=== PATIENT | female | born 1940 | race Caucasian/White ===

== ENCOUNTER 2016-12-30 01:58 | Emergency (ER) | payer MEDICARE, OTHER ==
[~2016-12-30] VITALS: Ht 162.6 cm; Wt 89.0 kg
[~2016-12-30 01:58] MED LIST: FURO40 PO; KDUR20 PO; LEVO75TA4 PO; LISI-662 PO; NAPR-58 PO; lipitor
[2016-12-30] MEDS ORDERED: TraMADol HCL 50 MG TABLET PO ONE (03:15)
[2016-12-30 05:19] VITALS: BP 171/79
== END 2016-12-30 05:47 | disposition home or self-care (01) ==
LOC: EMS 02:00
DX: M13.852 Other specified arthritis, left hip (principal); R26.2 Difficulty in walking, not elsewhere classified; G89.29 Other chronic pain; E78.00 Pure hypercholesterolemia, unspecified; I11.0 Hypertensive heart disease with heart failure; I50.9 Heart failure, unspecified; Z88.0 Allergy status to penicillin
CPT/HCPCS: 73503; 99284

== ENCOUNTER 2017-01-01 11:05 | Inpatient (IN) | payer MEDICARE ==
[~2017-01-01] VITALS: Ht 162.6 cm; Wt 86.3 kg
[2017-01-01] MEDS ORDERED: IPRATROPIUM BROMIDE 0.5 MG/2.5 ML NEB SOLUTION NEB ONE ×2 (11:15→15:15)
[2017-01-01] MEDS ORDERED: ALBUTEROL SULFATE 5 MG/ML 20 ML NEB SOLN [BULK] NEB ONE ×2 (11:15→15:20)
[2017-01-01] MEDS ORDERED: 0.9% SODIUM CHLORIDE 5 ML NEB SOLUTION NEB ONE ×3 (11:18→15:32)
[2017-01-01 11:58] LABS: BASOPHILS # (AUTO) 0.04 K/uL (0.00-0.20); BASOPHILS % (AUTO) 0.3 % (0.0-2.0); EOSINOPHILS # (AUTO) 0.21 K/uL (0.00-0.70); EOSINOPHILS % (AUTO) 1.54 % (1.0-6.0); HEMATOCRIT 39.4 % (36-46); HEMOGLOBIN 12.6 g/dL (12.0-16.0); LYMPHOCYTES # (AUTO) 4.6 K/uL (1.0-4.8); LYMPHOCYTES % (AUTO) 34.1 % (22.0-44.0); MEAN CORPUSCULAR HEMOGLOBIN 28.7 pg (26.0-34.0); MEAN CORPUSCULAR HGB CONC 32.1 G/dL (31.0-37.0); MEAN CORPUSCULAR VOLUME 90 fL (80-100); MONOCYTES # (AUTO) 1.1 K/uL (0.1-1.0); MONOCYTES % (AUTO) 7.9 % (2.0-9.0); NEUTROPHILS # (AUTO) 7.5 K/uL (1.8-7.7); NEUTROPHILS % (AUTO) 56.2 % (40.0-70.0); PLATELET COUNT (AUTO) 233 K/uL (150-450); RED CELL DISTRIBUTION WIDTH 14.1 % (11.5-14.5); WHITE BLOOD COUNT (AUTO) 13.4 K/uL (4.5-11.0)
[2017-01-01 12:08] LABS: ANION GAP 11 mmol/L (8-16); CARBON DIOXIDE 27 mmol/L (22-29); CHLORIDE 102 mmol/L (98-107); CREATININE 0.94 mg/dL (0.60-1.30); GLOMERULAR FILTR. RATE CALC 58 mL/min (>60); POTASSIUM 3.9 mmol/L (3.5-5.1); SODIUM SERUM 140 mmol/L (136-145); UREA NITROGEN, BLOOD 18 mg/dL (7-18)
[2017-01-01 12:23] LABS: B-TYPE NATRIURETIC PEPTIDE 35 pg/mL (0-100)
[2017-01-01 12:48] LABS: ALANINE AMINOTRANSFERASE 24 U/L (12-78); ALBUMIN 3.8 g/dL (3.4-5.0); ASPARTATE AMINOTRANSFERASE 20 U/L (15-37); BILIRUBIN,TOTAL 0.4 mg/dL (0.1-1.0); CREATINE KINASE MB 1.2 ng/mL (0-5); CREATINE KINASE, TOTAL 85 U/L (26-192); THYROID STIMULATING HORMONE 1.62 uIU/mL (0.36-3.74); TOTAL PROTEIN, SERUM 7.4 g/dL (6.4-8.2)
[2017-01-01] MEDS ORDERED: SODIUM CHLORIDE 0.9% 100 ML ONE (13:00)
[2017-01-01] MEDS ORDERED: IOVERSOL 350 MG/ML 150 ML VIAL ONE (13:00)
[2017-01-01] MEDS ORDERED: MethylPREDNISolone SOD SUCC 125 MG/2 ML VIAL IVP ONE (13:30)
[2017-01-01] MEDS ORDERED: LEVOFLOXACIN 500 MG/D5% WATER 100 ML IV ONE (15:45)
[2017-01-01] MEDS ORDERED: SODIUM CHLORIDE 0.9% 1,000 ML IV ONE (16:43)
[2017-01-01 17:06] LABS: APPEARANCE,URINE CLEAR (CLEAR); GLUCOSE, URINE (UA) NEGATIVE (NEGATIVE); KETONES,URINE NEGATIVE (NEGATIVE); LEUKOCYTE ESTERASE ,URINE SMALL (NEGATIVE); OCCULT BLOOD,URINE NEGATIVE (NEGATIVE); PROTEIN,URINE NEGATIVE (NEGATIVE)
[2017-01-01 17:13] LABS: ADD UA MICROSCOPIC YES
[2017-01-01] MEDS ORDERED: ACETAMINOPHEN 325 MG TABLET PO PRN ×2 (17:15→22:45)
[2017-01-01] MEDS ORDERED: ONDANSETRON HCL 4 MG/2 ML VIAL IVP PRN (17:15)
[2017-01-01] MEDS ORDERED: 0.9% SODIUM CHLORIDE 10 ML SYRINGE IVP PRN (17:15)
[2017-01-01 17:22] LABS: PHOSPHORUS 3.3 mg/dL (2.5-4.9)
[2017-01-01 17:48] LABS: RBC,URINE None Seen /HPF (0-2); SQUAMOUS EPITHELIAL CELL,UR Rare /LPF (None Seen)
[2017-01-01] MEDS ORDERED: IPRATROPIUM BROMIDE 0.5 MG/2.5 ML NEB SOLUTION NEB SCH (19:00)
[2017-01-01] MEDS ORDERED: ALBUTEROL SULFATE 2.5 MG/0.5 ML NEB SOLUTION NEB SCH (19:00)
[2017-01-01 20:20] VITALS: BP 148/68
[2017-01-01] MEDS ORDERED: ATOR10TA84 PO (22:38)
[2017-01-01] MEDS: ALBUTEROL SULFATE 2.5 MG/0.5 ML NEB SOLUTION NEB SCH (22:45)
[2017-01-01] MEDS ORDERED: ZOLPIDEM TARTRATE 5 MG TABLET PO PRN (22:45)
[2017-01-01] MEDS ORDERED: ALBUTEROL SULFATE 2.5 MG/0.5 ML NEB SOLUTION NEB PRN (22:45)
[2017-01-01 23:55] VITALS: BP 137/69
[2017-01-02] MEDS: ATORVASTATIN CALCIUM 10 MG TABLET PO SCH ×2 (00:41→20:39)
[2017-01-02] MEDS: NAPROXEN 500 MG TABLET PO SCH ×3 (00:42→21:00)
[2017-01-02] MEDS: LISINOPRIL 20 MG TABLET PO SCH ×2 (00:42→20:39)
[2017-01-02] MEDS: MethylPREDNISolone SOD SUCC 125 MG/2 ML VIAL IVP SCH ×5 (00:43→23:55)
[2017-01-02] MEDS: HEPARIN SODIUM,PORCINE 5,000 UNITS/ML VIAL SQ SCH ×4 (00:44→23:55)
[2017-01-02] MEDS: DILTIAZEM HCL 60 MG TABLET PO SCH ×5 (00:55→23:55)
[2017-01-02 05:15] VITALS: BP 135/68
[2017-01-02] MEDS: LEVOTHYROXINE SODIUM 75 MCG TABLET PO SCH (06:15)
[2017-01-02 07:48] VITALS: BP 137/70
[2017-01-02 08:01] LABS: ALBUMIN 3.5 g/dL (3.4-5.0); BILIRUBIN,TOTAL 0.4 mg/dL (0.1-1.0); CALCIUM, TOTAL 9.1 mg/dL (8.8-10.5); CREATININE 0.96 mg/dL (0.60-1.30); POTASSIUM 3.9 mmol/L (3.5-5.1); TOTAL PROTEIN, SERUM 7.2 g/dL (6.4-8.2)
[2017-01-02] MEDS: PANTOPRAZOLE SODIUM 40 MG DR TABLET PO SCH (08:10)
[2017-01-02] MEDS: POTASSIUM CHLORIDE 20 MEQ ER TABLET PO SCH (08:10)
[2017-01-02] MEDS: DOCUSATE SODIUM 100 MG CAPSULE PO SCH ×2 (08:10→20:39)
[2017-01-02] MEDS: FUROSEMIDE 40 MG TABLET PO SCH (08:10)
[2017-01-02] MEDS: IPRATROPIUM BROMIDE 0.5 MG/2.5 ML NEB SOLUTION NEB SCH ×4 (08:54→20:56)
[2017-01-02] MEDS: ALBUTEROL SULFATE 2.5 MG/0.5 ML NEB SOLUTION NEB SCH ×2 (08:55→13:00)
[2017-01-02] MEDS ORDERED: OxyCODONE HCL/ACETAMINOPHEN 5-325 MG TABLET PO PRN (10:45)
[2017-01-02 11:14] VITALS: BP 130/79
[2017-01-02] MEDS ORDERED: LEVOFLOXACIN 500 MG/D5% WATER 100 ML IV SCH (11:30)
[2017-01-02] MEDS ORDERED: SODIUM CHLORIDE 0.9% 250 ML IV ONE (14:52)
[2017-01-02] MEDS: LEVOFLOXACIN 500 MG/D5% WATER 100 ML IV SCH (15:00)
[2017-01-02 15:32] VITALS: BP 136/77
[2017-01-02] MEDS: OxyCODONE HCL/ACETAMINOPHEN 5-325 MG TABLET PO PRN ×2 (16:10→23:49)
[2017-01-02 19:51] VITALS: BP 133/75
[2017-01-02] MEDS: BUDESONIDE 0.5 MG/2 ML NEB SOLUTION NEB SCH (20:56)
[2017-01-02] MEDS: LEVALBUTEROL HCL 0.63 MG/3 ML NEB SOLUTION NEB SCH (20:56)
[2017-01-02 23:45] VITALS: BP 147/86
[2017-01-03 04:44] VITALS: BP 128/73
[2017-01-03] MEDS: LEVOTHYROXINE SODIUM 75 MCG TABLET PO SCH (05:56)
[2017-01-03] MEDS: MethylPREDNISolone SOD SUCC 125 MG/2 ML VIAL IVP SCH ×3 (05:56→18:09)
[2017-01-03] MEDS: DILTIAZEM HCL 60 MG TABLET PO SCH (05:56)
[2017-01-03 06:53] LABS: EOSINOPHILS % (AUTO) 0 % (1.0-6.0); HEMATOCRIT 38.7 % (36-46); HEMOGLOBIN 12.3 g/dL (12.0-16.0); LYMPHOCYTES # (AUTO) 1.8 K/uL (1.0-4.8); LYMPHOCYTES % (AUTO) 6.1 % (22.0-44.0); MEAN CORPUSCULAR HEMOGLOBIN 28.2 pg (26.0-34.0); MEAN CORPUSCULAR HGB CONC 31.9 G/dL (31.0-37.0); MEAN CORPUSCULAR VOLUME 89 fL (80-100); MONOCYTES # (AUTO) 0.6 K/uL (0.1-1.0); MONOCYTES % (AUTO) 1.9 % (2.0-9.0); NEUTROPHILS # (AUTO) 26.8 K/uL (1.8-7.7); PLATELET COUNT (AUTO) 255 K/uL (150-450); RED BLOOD CELL COUNT(AUTO) 4.37 MIL/uL (4.00-5.20); WHITE BLOOD COUNT (AUTO) 29.1 K/uL (4.5-11.0)
[2017-01-03 07:03] LABS: RBC MORPHOLOGY COMMENT NORMAL RBC MORPH
[2017-01-03 07:38] VITALS: BP 119/58
[2017-01-03 07:40] LABS: CALCIUM, TOTAL 9.5 mg/dL (8.8-10.5); CHOL/HDL RATIO 3.7 (3.9-5.7); CREATINE KINASE MB 16.5 ng/mL (0-5); CREATININE 1.15 mg/dL (0.60-1.30); MAGNESIUM 2.2 mg/dL (1.80-2.40); POTASSIUM 4.9 mmol/L (3.5-5.1); THYROID STIMULATING HORMONE 0.36 uIU/mL (0.36-3.74)
[2017-01-03 07:41] LABS: HEMOGLOBIN A1C 6.3 % (4.5-6.2)
[2017-01-03] MEDS: IPRATROPIUM BROMIDE 0.5 MG/2.5 ML NEB SOLUTION NEB SCH ×4 (08:23→21:21)
[2017-01-03] MEDS: LEVALBUTEROL HCL 0.63 MG/3 ML NEB SOLUTION NEB SCH ×4 (08:23→21:21)
[2017-01-03 08:27] LABS: VITAMIN B12 LEVEL 889 pg/mL (211-911)
[2017-01-03] MEDS: BUDESONIDE 0.5 MG/2 ML NEB SOLUTION NEB SCH ×3 (09:00→21:21)
[2017-01-03] MEDS: HEPARIN SODIUM,PORCINE 5,000 UNITS/ML VIAL SQ SCH ×2 (09:02→16:38)
[2017-01-03] MEDS: PANTOPRAZOLE SODIUM 40 MG DR TABLET PO SCH (09:02)
[2017-01-03] MEDS: FUROSEMIDE 40 MG TABLET PO SCH (09:03)
[2017-01-03] MEDS: DOCUSATE SODIUM 100 MG CAPSULE PO SCH ×2 (09:03→21:09)
[2017-01-03] MEDS: NAPROXEN 500 MG TABLET PO SCH ×2 (09:03→21:09)
[2017-01-03] MEDS: POTASSIUM CHLORIDE 20 MEQ ER TABLET PO SCH (09:03)
[2017-01-03 11:15] VITALS: BP 125/65
[2017-01-03 15:35] VITALS: BP 123/66
[2017-01-03] MEDS: LEVOFLOXACIN 500 MG/D5% WATER 100 ML IV SCH (16:38)
[2017-01-03] MEDS: OxyCODONE HCL/ACETAMINOPHEN 5-325 MG TABLET PO PRN (18:09)
[2017-01-03 19:37] VITALS: BP_SYST 141; BP_SYST 146; BP_DIAS 71; BP_DIAS 83
[2017-01-03] MEDS: LISINOPRIL 20 MG TABLET PO SCH (21:09)
[2017-01-03] MEDS: ATORVASTATIN CALCIUM 10 MG TABLET PO SCH (21:09)
[2017-01-04 00:01] VITALS: BP 119/52
[2017-01-04] MEDS: MethylPREDNISolone SOD SUCC 125 MG/2 ML VIAL IVP SCH ×4 (00:41→17:23)
[2017-01-04] MEDS: HEPARIN SODIUM,PORCINE 5,000 UNITS/ML VIAL SQ SCH ×3 (00:41→17:23)
[2017-01-04 04:52] VITALS: BP 141/83
[2017-01-04] MEDS: OxyCODONE HCL/ACETAMINOPHEN 5-325 MG TABLET PO PRN (05:19)
[2017-01-04] MEDS: LEVOTHYROXINE SODIUM 75 MCG TABLET PO SCH (06:09)
[2017-01-04 07:32] VITALS: BP 135/69
[2017-01-04 08:00] LABS: EOSINOPHILS % (AUTO) 0 % (1.0-6.0); HEMOGLOBIN 11.9 g/dL (12.0-16.0); LYMPHOCYTES # (AUTO) 1.3 K/uL (1.0-4.8); LYMPHOCYTES % (AUTO) 5.3 % (22.0-44.0); MEAN CORPUSCULAR HEMOGLOBIN 28.7 pg (26.0-34.0); MEAN CORPUSCULAR HGB CONC 33.1 G/dL (31.0-37.0); MEAN CORPUSCULAR VOLUME 87 fL (80-100); MONOCYTES # (AUTO) 0.8 K/uL (0.1-1.0); MONOCYTES % (AUTO) 3.3 % (2.0-9.0); NEUTROPHILS # (AUTO) 21.8 K/uL (1.8-7.7); PLATELET COUNT (AUTO) 236 K/uL (150-450); RED BLOOD CELL COUNT(AUTO) 4.15 MIL/uL (4.00-5.20); RED CELL DISTRIBUTION WIDTH 14.4 % (11.5-14.5); WHITE BLOOD COUNT (AUTO) 23.8 K/uL (4.5-11.0)
[2017-01-04 08:01] LABS: NEUTROPHILS % (AUTO) 91.4 % (40.0-70.0)
[2017-01-04 08:17] LABS: CALCIUM, TOTAL 8.8 mg/dL (8.8-10.5); CREATININE 1.22 mg/dL (0.60-1.30); POTASSIUM 4.5 mmol/L (3.5-5.1)
[2017-01-04] MEDS: LEVALBUTEROL HCL 0.63 MG/3 ML NEB SOLUTION NEB SCH ×4 (08:27→21:32)
[2017-01-04] MEDS: BUDESONIDE 0.5 MG/2 ML NEB SOLUTION NEB SCH ×2 (08:27→21:32)
[2017-01-04] MEDS: IPRATROPIUM BROMIDE 0.5 MG/2.5 ML NEB SOLUTION NEB SCH ×4 (08:27→21:32)
[2017-01-04] MEDS: NAPROXEN 500 MG TABLET PO SCH ×2 (08:51→20:19)
[2017-01-04] MEDS: FUROSEMIDE 40 MG TABLET PO SCH (08:51)
[2017-01-04] MEDS: PANTOPRAZOLE SODIUM 40 MG DR TABLET PO SCH (08:51)
[2017-01-04] MEDS: DOCUSATE SODIUM 100 MG CAPSULE PO SCH ×2 (08:52→20:19)
[2017-01-04] MEDS: POTASSIUM CHLORIDE 20 MEQ ER TABLET PO SCH (08:52)
[2017-01-04 11:51] VITALS: BP 125/59
[2017-01-04 16:01] VITALS: BP 125/65
[2017-01-04] MEDS: LEVOFLOXACIN 500 MG/D5% WATER 100 ML IV SCH (17:22)
[2017-01-04] MEDS: LISINOPRIL 20 MG TABLET PO SCH (20:19)
[2017-01-04] MEDS: ATORVASTATIN CALCIUM 10 MG TABLET PO SCH (20:19)
[2017-01-04 20:46] VITALS: BP 122/74
[2017-01-05] VITALS (7 sets, daily range): BP systolic 132–144; BP diastolic 66–77
[2017-01-05] MEDS: HEPARIN SODIUM,PORCINE 5,000 UNITS/ML VIAL SQ SCH ×3 (01:10→16:42)
[2017-01-05] MEDS: MethylPREDNISolone SOD SUCC 125 MG/2 ML VIAL IVP SCH ×4 (01:10→17:53)
[2017-01-05] MEDS: LEVOTHYROXINE SODIUM 75 MCG TABLET PO SCH (06:20)
[2017-01-05 07:31] LABS: EOSINOPHILS % (AUTO) 0 % (1.0-6.0); HEMATOCRIT 38.9 % (36-46); HEMOGLOBIN 12.5 g/dL (12.0-16.0); LYMPHOCYTES # (AUTO) 1.3 K/uL (1.0-4.8); LYMPHOCYTES % (AUTO) 7.2 % (22.0-44.0); MEAN CORPUSCULAR HEMOGLOBIN 28.3 pg (26.0-34.0); MEAN CORPUSCULAR HGB CONC 32.1 G/dL (31.0-37.0); MEAN CORPUSCULAR VOLUME 88 fL (80-100); MONOCYTES # (AUTO) 0.4 K/uL (0.1-1.0); MONOCYTES % (AUTO) 2.3 % (2.0-9.0); NEUTROPHILS # (AUTO) 16.8 K/uL (1.8-7.7); PLATELET COUNT (AUTO) 234 K/uL (150-450); RED BLOOD CELL COUNT(AUTO) 4.41 MIL/uL (4.00-5.20); RED CELL DISTRIBUTION WIDTH 14.2 % (11.5-14.5); WHITE BLOOD COUNT (AUTO) 18.6 K/uL (4.5-11.0)
[2017-01-05 07:33] LABS: NEUTROPHILS % (AUTO) 90.5 % (40.0-70.0)
[2017-01-05 07:40] LABS: CALCIUM, TOTAL 9.2 mg/dL (8.8-10.5); CREATININE 1.17 mg/dL (0.60-1.30); POTASSIUM 4.8 mmol/L (3.5-5.1)
[2017-01-05] MEDS: IPRATROPIUM BROMIDE 0.5 MG/2.5 ML NEB SOLUTION NEB SCH ×4 (08:59→20:29)
[2017-01-05] MEDS: LEVALBUTEROL HCL 0.63 MG/3 ML NEB SOLUTION NEB SCH ×4 (09:00→20:29)
[2017-01-05] MEDS: BUDESONIDE 0.5 MG/2 ML NEB SOLUTION NEB SCH ×2 (09:00→20:29)
[2017-01-05] MEDS: PANTOPRAZOLE SODIUM 40 MG DR TABLET PO SCH (09:41)
[2017-01-05] MEDS: POTASSIUM CHLORIDE 20 MEQ ER TABLET PO SCH (09:41)
[2017-01-05] MEDS: DOCUSATE SODIUM 100 MG CAPSULE PO SCH ×2 (09:41→20:16)
[2017-01-05] MEDS: FUROSEMIDE 40 MG TABLET PO SCH (09:41)
[2017-01-05] MEDS: NAPROXEN 500 MG TABLET PO SCH ×2 (09:42→20:17)
[2017-01-05] MEDS: LEVOFLOXACIN 500 MG/D5% WATER 100 ML IV SCH (16:42)
[2017-01-05] MEDS: ATORVASTATIN CALCIUM 10 MG TABLET PO SCH (20:16)
[2017-01-05] MEDS: LISINOPRIL 20 MG TABLET PO SCH (20:17)
[2017-01-05] MEDS ORDERED: MAGNESIUM HYDROXIDE SUSPENSION 30 ML UDCUP PO PRN (21:15)
[2017-01-05] MEDS: OxyCODONE HCL/ACETAMINOPHEN 5-325 MG TABLET PO PRN (22:00)
[2017-01-06] MEDS: MethylPREDNISolone SOD SUCC 125 MG/2 ML VIAL IVP SCH ×3 (00:12→11:36)
[2017-01-06] MEDS: HEPARIN SODIUM,PORCINE 5,000 UNITS/ML VIAL SQ SCH ×4 (00:12→23:44)
[2017-01-06 04:44] VITALS: BP 117/73
[2017-01-06] MEDS: LEVOTHYROXINE SODIUM 75 MCG TABLET PO SCH (06:01)
[2017-01-06 07:18] VITALS: BP 125/73
[2017-01-06 07:32] LABS: EOSINOPHILS % (AUTO) 0 % (1.0-6.0); HEMATOCRIT 39.4 % (36-46); HEMOGLOBIN 12.5 g/dL (12.0-16.0); LYMPHOCYTES # (AUTO) 1.5 K/uL (1.0-4.8); LYMPHOCYTES % (AUTO) 7.2 % (22.0-44.0); MEAN CORPUSCULAR HEMOGLOBIN 27.5 pg (26.0-34.0); MEAN CORPUSCULAR HGB CONC 31.6 G/dL (31.0-37.0); MEAN CORPUSCULAR VOLUME 87 fL (80-100); MONOCYTES # (AUTO) 0.3 K/uL (0.1-1.0); MONOCYTES % (AUTO) 1.5 % (2.0-9.0); NEUTROPHILS # (AUTO) 18.6 K/uL (1.8-7.7); PLATELET COUNT (AUTO) 221 K/uL (150-450); RED BLOOD CELL COUNT(AUTO) 4.52 MIL/uL (4.00-5.20); RED CELL DISTRIBUTION WIDTH 14.5 % (11.5-14.5); WHITE BLOOD COUNT (AUTO) 20.3 K/uL (4.5-11.0)
[2017-01-06 07:34] LABS: CALCIUM, TOTAL 8.5 mg/dL (8.8-10.5); CREATININE 1.15 mg/dL (0.60-1.30)
[2017-01-06 07:36] LABS: NEUTROPHILS % (AUTO) 91.3 % (40.0-70.0)
[2017-01-06 07:37] LABS: RBC MORPHOLOGY COMMENT NORMAL RBC MORPH
[2017-01-06] MEDS: DOCUSATE SODIUM 100 MG CAPSULE PO SCH ×2 (09:19→20:45)
[2017-01-06] MEDS: NAPROXEN 500 MG TABLET PO SCH ×2 (09:19→20:45)
[2017-01-06] MEDS: FUROSEMIDE 40 MG TABLET PO SCH (09:19)
[2017-01-06] MEDS: POTASSIUM CHLORIDE 20 MEQ ER TABLET PO SCH (09:19)
[2017-01-06] MEDS: PANTOPRAZOLE SODIUM 40 MG DR TABLET PO SCH (09:20)
[2017-01-06] MEDS: LEVALBUTEROL HCL 0.63 MG/3 ML NEB SOLUTION NEB SCH ×4 (09:41→20:42)
[2017-01-06] MEDS: IPRATROPIUM BROMIDE 0.5 MG/2.5 ML NEB SOLUTION NEB SCH ×4 (09:41→20:42)
[2017-01-06 11:04] VITALS: BP 118/75
[2017-01-06 16:06] VITALS: BP 123/65
[2017-01-06] MEDS ORDERED: SODIUM CHLORIDE 0.9% 500 ML IV ONE (16:37)
[2017-01-06] MEDS: LEVOFLOXACIN 500 MG/D5% WATER 100 ML IV SCH (16:46)
[2017-01-06] MEDS ORDERED: NITROGLYCERIN 2% (1 GM=INCH) PACKET TP PRN (18:00)
[2017-01-06] MEDS: MethylPREDNISolone SOD SUCC 40 MG/ML VIAL IVP SCH ×2 (18:19→23:44)
[2017-01-06] MEDS ORDERED: 0.9% SODIUM CHLORIDE 10 ML SYRINGE IVP PRN (19:30)
[2017-01-06 19:38] VITALS: BP 147/70
[2017-01-06] MEDS: ATORVASTATIN CALCIUM 10 MG TABLET PO SCH (20:45)
[2017-01-06] MEDS: LISINOPRIL 20 MG TABLET PO SCH (20:45)
[2017-01-06] MEDS: OxyCODONE HCL/ACETAMINOPHEN 5-325 MG TABLET PO PRN (20:46)
[2017-01-06 23:11] VITALS: BP 120/65
[2017-01-07 04:25] VITALS: BP 122/61
[2017-01-07] MEDS: MethylPREDNISolone SOD SUCC 40 MG/ML VIAL IVP SCH ×3 (06:12→16:09)
[2017-01-07] MEDS: LEVOTHYROXINE SODIUM 75 MCG TABLET PO SCH (06:12)
[2017-01-07 07:24] VITALS: BP 132/75
[2017-01-07] MEDS: HEPARIN SODIUM,PORCINE 5,000 UNITS/ML VIAL SQ SCH ×2 (08:12→16:00)
[2017-01-07] MEDS: FUROSEMIDE 40 MG TABLET PO SCH (08:12)
[2017-01-07] MEDS: DOCUSATE SODIUM 100 MG CAPSULE PO SCH ×2 (08:12→21:06)
[2017-01-07] MEDS: PANTOPRAZOLE SODIUM 40 MG DR TABLET PO SCH (08:12)
[2017-01-07] MEDS: POTASSIUM CHLORIDE 20 MEQ ER TABLET PO SCH (08:12)
[2017-01-07] MEDS: NAPROXEN 500 MG TABLET PO SCH ×2 (08:13→21:06)
[2017-01-07] MEDS: IPRATROPIUM BROMIDE 0.5 MG/2.5 ML NEB SOLUTION NEB SCH ×4 (09:02→21:12)
[2017-01-07] MEDS: LEVALBUTEROL HCL 0.63 MG/3 ML NEB SOLUTION NEB SCH ×4 (09:02→21:12)
[2017-01-07 12:06] VITALS: BP 137/74
[2017-01-07] MEDS: BENZONATATE 100 MG CAPSULE PO SCH ×2 (12:20→16:09)
[2017-01-07] MEDS: LEVOFLOXACIN 500 MG/D5% WATER 100 ML IV SCH (16:09)
[2017-01-07 16:11] VITALS: BP 114/60
[2017-01-07 19:17] VITALS: BP 142/76
[2017-01-07] MEDS: LISINOPRIL 20 MG TABLET PO SCH (21:06)
[2017-01-07] MEDS: ATORVASTATIN CALCIUM 10 MG TABLET PO SCH (21:06)
[2017-01-07] MEDS: OxyCODONE HCL/ACETAMINOPHEN 5-325 MG TABLET PO PRN (21:06)
[2017-01-08 00:22] VITALS: BP 126/62
[2017-01-08] MEDS: BENZONATATE 100 MG CAPSULE PO SCH ×2 (00:50→07:36)
[2017-01-08] MEDS: HEPARIN SODIUM,PORCINE 5,000 UNITS/ML VIAL SQ SCH ×2 (00:50→07:36)
[2017-01-08] MEDS: MethylPREDNISolone SOD SUCC 40 MG/ML VIAL IVP SCH ×2 (00:51→05:43)
[2017-01-08 04:58] VITALS: BP 120/59
[2017-01-08] MEDS: LEVOTHYROXINE SODIUM 75 MCG TABLET PO SCH (05:43)
[2017-01-08 07:17] VITALS: BP 104/63
[2017-01-08] MEDS: FUROSEMIDE 40 MG TABLET PO SCH (07:36)
[2017-01-08] MEDS: DOCUSATE SODIUM 100 MG CAPSULE PO SCH (07:36)
[2017-01-08] MEDS: NAPROXEN 500 MG TABLET PO SCH (07:36)
[2017-01-08] MEDS: POTASSIUM CHLORIDE 20 MEQ ER TABLET PO SCH (07:36)
[2017-01-08] MEDS: PANTOPRAZOLE SODIUM 40 MG DR TABLET PO SCH (07:36)
[2017-01-08] MEDS: LEVALBUTEROL HCL 0.63 MG/3 ML NEB SOLUTION NEB SCH ×2 (08:19→12:51)
[2017-01-08] MEDS: IPRATROPIUM BROMIDE 0.5 MG/2.5 ML NEB SOLUTION NEB SCH ×2 (08:19→12:52)
[2017-01-08] MEDS ORDERED: PredniSONE 20 MG TABLET PO SCH (09:00)
[2017-01-08 11:31] VITALS: BP 128/57
[2017-01-08] MEDS: OxyCODONE HCL/ACETAMINOPHEN 5-325 MG TABLET PO PRN ×2 (11:46→15:53)
[2017-01-08] MEDS ORDERED: LEVO500 PO (15:08)
[2017-01-08 15:41] VITALS: BP 118/57
== END 2017-01-08 16:00 | disposition home health service (06) | DRG 202 ==
LOC: EMS 11:07 → 5S 18:20
PROVIDERS: ADMIT Internal Medicine; ATTEND Internal Medicine Geriatric Medicine
DX: J45.901 Unspecified asthma with (acute) exacerbation (principal); J18.9 Pneumonia, unspecified organism; N39.0 Urinary tract infection, site not specified; I47.1 Supraventricular tachycardia; I50.9 Heart failure, unspecified; E66.9 Obesity, unspecified; E03.9 Hypothyroidism, unspecified; I11.0 Hypertensive heart disease with heart failure; M19.90 Unspecified osteoarthritis, unspecified site; I70.0 Atherosclerosis of aorta; M71.20 Synovial cyst of popliteal space [Baker], unspecified knee; E78.5 Hyperlipidemia, unspecified; J20.9 Acute bronchitis, unspecified; T38.0X5A Adverse effect of glucocorticoids and synthetic analogues, initial encounter; E09.65 Drug or chemical induced diabetes mellitus with hyperglycemia; J98.6 Disorders of diaphragm; Y92.238 Other place in hospital as the place of occurrence of the external cause; Z87.01 Personal history of pneumonia (recurrent); Z88.5 Allergy status to narcotic agent; Z88.0 Allergy status to penicillin; Z93.3 Colostomy status; Z90.710 Acquired absence of both cervix and uterus; Z88.2 Allergy status to sulfonamides; Z88.8 Allergy status to other drugs, medicaments and biological substances; Z79.1 Long term (current) use of non-steroidal anti-inflammatories (NSAID); Z79.899 Other long term (current) drug therapy; Z90.49 Acquired absence of other specified parts of digestive tract; Z86.018 Personal history of other benign neoplasm; Y93.89 Activity, other specified; Y99.8 Other external cause status; Z53.29 Procedure and treatment not carried out because of patient's decision for other reasons
CPT/HCPCS: 71275; 76000; 82306; 82607; 82746; 83036; 83735; 84100; 84439; 84443; 85379; 87040; 93005; 93306; 93971; 94640; 94644; 96365; 96366; 96375; 97116; 97162; 97530; 99291; J1644; J1956; J2920; J2930; J7030; J7040; J7050

== ENCOUNTER → 2017-01-16 | Outpatient (CLI) | payer OTHER ==
[~2017-01-16] VITALS: Ht 157.5 cm; Wt 86.0 kg
[~2017-01-16] MED LIST changes: +ATOR10TA84 PO; +LEVO500 PO; -lipitor
[2017-01-16 12:46] VITALS: BP 115/63
== END | disposition home or self-care (01) ==
LOC: SRCNTR 12:39
PROVIDERS: ATTEND Internal Medicine Critical Care Medicine
DX: I11.0 Hypertensive heart disease with heart failure (principal); I50.9 Heart failure, unspecified; J45.901 Unspecified asthma with (acute) exacerbation; M19.90 Unspecified osteoarthritis, unspecified site; Z85.43 Personal history of malignant neoplasm of ovary
CPT/HCPCS: G0463

== ENCOUNTER → 2017-01-27 | Outpatient (CLI) | payer OTHER ==
[~2017-01-27] MED LIST changes: -LEVO500 PO
== END | disposition home or self-care (01) ==
LOC: RESP 10:04
PROVIDERS: ATTEND Internal Medicine Critical Care Medicine
DX: J45.909 Unspecified asthma, uncomplicated (principal)
CPT/HCPCS: 94010; 94726; 94727; 94729

== ENCOUNTER 2019-08-31 12:03 | Emergency (ER) | payer OTHER ==
[~2019-08-31] VITALS: Ht 162.6 cm; Wt 86.4 kg
[~2019-08-31 12:03] MED LIST changes: +NAPR-1025 PO; -NAPR-58 PO
[2019-08-31] MEDS ORDERED: DICL4100G TP (12:45)
[2019-08-31] MEDS ORDERED: SODIUM CHLORIDE 0.9% 1,000 ML IV ONE (15:45)
[2019-08-31 18:30] LABS: ANION GAP 8 mmol/L (8-16); BASOPHILS % (AUTO) 0.3 % (0.0-2.0); CALCIUM, TOTAL 9.8 mg/dL (8.8-10.5); CARBON DIOXIDE 30 mmol/L (22-29); CHLORIDE 103 mmol/L (98-107); CREATININE 0.86 mg/dL (0.60-1.30); EOSINOPHILS % (AUTO) 1.7 % (1.0-6.0); GLUCOSE,RANDOM 105 mg/dL (70-110); HEMATOCRIT 39.8 % (36-46); LYMPHOCYTES # (AUTO) 1.8 K/uL (1.0-4.8); LYMPHOCYTES % (AUTO) 20.4 % (22.0-44.0); MEAN CORPUSCULAR HEMOGLOBIN 28.5 pg (26.0-34.0); MEAN CORPUSCULAR HGB CONC 32.7 G/dL (31.0-37.0); MEAN CORPUSCULAR VOLUME 87 fL (80-100); MONOCYTES # (AUTO) 0.6 K/uL (0.1-1.0); NEUTROPHILS # (AUTO) 6.2 K/uL (1.8-7.7); NEUTROPHILS % (AUTO) 70.6 % (40.0-70.0); PLATELET COUNT (AUTO) 243 K/uL (150-450); POTASSIUM 4.3 mmol/L (3.5-5.1); RED BLOOD CELL COUNT(AUTO) 4.58 MIL/uL (4.00-5.20); RED CELL DISTRIBUTION WIDTH 14.3 % (11.5-14.5); SODIUM SERUM 141 mmol/L (136-145); UREA NITROGEN, BLOOD 16 mg/dL (7-18)
[2019-08-31 18:32] LABS: GLOMERULAR FILTR. RATE CALC > 60 mL/min (>60)
[2019-08-31 18:37] LABS: ALANINE AMINOTRANSFERASE 19 U/L (12-78); ALBUMIN 3.8 g/dL (3.4-5.0); ALKALINE PHOSPHATASE 122 U/L (46-116); ASPARTATE AMINOTRANSFERASE 17 U/L (15-37); BILIRUBIN,TOTAL 0.5 mg/dL (0.1-1.0); CREATINE KINASE, TOTAL ONLY 37 U/L (26-192); TOTAL PROTEIN, SERUM 7.3 g/dL (6.4-8.2)
[2019-08-31 18:38] LABS: LACTIC ACID 1.1 mmol/L (0.4-2.0)
[2019-08-31 18:47] LABS: PROTHROMBIN TIME 9.7 SEC (9.4-11.6)
[2019-08-31 19:05] LABS: APPEARANCE,URINE CLEAR (CLEAR); BILIRUBIN,URINE NEGATIVE (NEGATIVE); GLUCOSE, URINE (UA) NEGATIVE (NEGATIVE); KETONES,URINE NEGATIVE (NEGATIVE); LEUKOCYTE ESTERASE ,URINE NEGATIVE (NEGATIVE); NITRATE,URINE NEGATIVE (NEGATIVE); OCCULT BLOOD,URINE NEGATIVE (NEGATIVE); PH,URINE 6.5 (5.0-8.0); PROTEIN,URINE NEGATIVE (NEGATIVE); UROBILINOGEN,URINE 0.2 mg/dL (<=1.0)
[2019-08-31 19:41] LABS: THYROID STIMULATING HORMONE 1.37 uIU/mL (0.36-3.74)
[2019-08-31] MEDS ORDERED: ACETAMINOPHEN 500 MG TABLET PO ONE (19:45)
[2019-08-31 19:59] VITALS: BP 132/86
== END 2019-08-31 20:10 | disposition home or self-care (01) ==
LOC: EMS 12:09
DX: E86.0 Dehydration (principal); G47.00 Insomnia, unspecified; F43.9 Reaction to severe stress, unspecified; I11.0 Hypertensive heart disease with heart failure; I50.9 Heart failure, unspecified; E78.00 Pure hypercholesterolemia, unspecified; Z90.710 Acquired absence of both cervix and uterus; Z79.899 Other long term (current) drug therapy; Z88.0 Allergy status to penicillin; Z88.1 Allergy status to other antibiotic agents; Z88.5 Allergy status to narcotic agent
CPT/HCPCS: 36415; 70450; 71045; 80053; 81003; 82550; 83605; 84443; 84484; 85025; 85610; 85730; 87040; 93005; 96360; 96361; 99285; J7030